=== PATIENT | male | born 1965 | race Two or more races ===

== ENCOUNTER 2020-07-22 18:22 | Emergency (ER) | payer SELFPAY ==
[~2020-07-22] VITALS: Ht 175.3 cm; Wt 82.1 kg
[2020-07-22] MEDS ORDERED: LORazepam 1 MG TABLET PO ONE (19:15)
--- NOTE | 2020-07-22 19:32 | RAD ---
STUDY: CT head without contrast INDICATION: Headache. COMPARISON: None. TECHNIQUE: Axial CT imaging through the head without the use of intravenous contrast. Sagittal and co remigio reformats were obtained. One or more of the following individualized dose reduction techniques were utilized for this examinat ion: 1. Automated exposure control 2. Adjustment of the mA and/or kV according to patient size 3. Use of iterative reconstruction technique. FINDINGS: No acute intracranial hemorrhage. Symmetric amorphous hyperattenuation at the globus pallidus compati ble with senescent/physiologic mineralization. Ybarra-white matter differentiation is maintained. No lo calized mass effect, midline shift or hydrocephalus. Unremarkable orbits and scalp. Intact calvarium. Normally aerated mastoid air cells, middle ears and visualized paranasal sinuses. IMPRESSION: No acute intracranial abnormality by CT. Electronically signed by: VERNELL LAUREANO MD (07/22/2020 7:30 PM) [facility]
--- NOTE | 2020-07-22 19:34 | PHYS DOC ---
Past History Past Medical History: Anxiety, Other Additional Past Medical Histor: INSOMNIA Past Surgical History: No Surgical History Alcohol Use: None Adult General Chief Complaint Chief Complaint: ANXIETY/PANIC ATTACK HPI HPI Patient is a 54-year-old male presents emergency department complaining of headache with numbness and tingling down both extremities. Patient denies recent injury, patient states that he is been dealing with these headaches for the past 10 years and has never had a CAT scan done, the patient worries that he might be having a stroke. Patient states that he has been feeling very nervous lately stating that he has been out of his clonazepam for the past 2 weeks. Patient states that he is supposed to take 50 mg of Zoloft for his anxiety disorder which he has been taking off and on however he felt like he might need it today so he took it this morning. Patient denies any visual changes, cough, shortness of breath, chest pain, chest palpitations, nausea, vomiting, diarrhea. Patient denies any allergic reaction symptoms, denies hives of his skin or itching of his skin. Patient states no one else living in his home is having the same symptoms as he. Patient denies any loss of motor dexterity, patient states that he can walk just fine. Patient states that he can drink any food without any problems. Review of Systems Review of Systems 14 body systems of review of systems have been reviewed. See HPI for pertinent positives and negative responses, otherwise all other systems are negative, nonpertinent or noncontributory. Current Medications Current Medications Current Medications Medications (Trade) Dose Ordered Sig/Radha Start Time Stop Time Status Last Admin Dose Admin Lorazepam (Ativan) 1 mg 1X ONCE 07/22/20 19:15 07/22/20 19:16 DC Allergies Allergies Allergies Coded Allergies Type Severity Reaction Last Updated Verified No Known Drug Allergies 07/22/20 No Physical Exam Physical Exam Constitutional: Well developed, well nourished, no acute distress, non-toxic appearance. HENT: Normocephalic, atraumatic, bilateral external ears normal, oropharynx moist, no oral exudates, nose normal. Eyes: PERRLA, EOMI, conjunctiva normal, no discharge. Neck: Normal range of motion, no tenderness, supple, no stridor. Cardiovascular:Heart rate regular rhythm, no murmur Lungs & Thorax: Bilateral breath sounds clear to auscultation Abdomen: Bowel sounds normal, soft, no tenderness, no masses, no pulsatile masses. Skin: Warm, dry, no erythema, no rash. Back: No tenderness, no CVA tenderness. Extremities: No tenderness, no cyanosis, no clubbing, ROM intact, no edema. Neurologic: Alert and oriented X 3, normal motor function, normal sensory function, no focal deficits noted. Psychologic: Affect normal, judgement normal, mood normal. Current Patient Data Vital Signs Vital Signs Date Time Temp Pulse Resp B/P (MAP) Pulse Ox O2 Delivery O2 Flow Rate FiO2 07/22/20 18:31 98.0 65 18 145/74 (97) 98 Room Air EKG EKG [] Radiology/Procedures Radiology/Procedures STATUS: REG ER ORD. PHYSICIAN: ELLE PEREZ APRN REASON: Headache PROCEDURE: CT HEAD WO CONTRAST STUDY: CT head without contrast INDICATION: Headache. COMPARISON: None. TECHNIQUE: Axial CT imaging through the head without the use of intravenous contrast. Sagittal and coronal reformats were obtained. One or more of the following individualized dose reduction techniques were utilized for this examination: 1. Automated exposure control 2. Adjustment of the mA and/or kV according to patient size 3. Use of iterative reconstruction technique. FINDINGS: No acute intracranial hemorrhage. Symmetric amorphous hyperattenuation at the globus pallidus compatible with senescent/physiologic mineralization. Ybarra-white matter differentiation is maintained. No localized mass effect, midline shift or hydrocephalus. Unremarkable orbits and scalp. Intact calvarium. Normally aerated mastoid air cells, middle ears and visualized paranasal sinuses. IMPRESSION: No acute intracranial abnormality by CT. Electronically signed by: VERNELL LAUREANO MD (07/22/2020 7:30 PM) [facility] DICTATED AND SIGNED BY: VERNELL LAUREANO MD DATE: 07/22/201925 CC: ELLE PEREZ APRN; ADORE LYLES MD ~MTH0 0 Impressions: Primary impression: Anxiety attack, panic attack. Heart Score Risk Factors: Risk Factors: DM, Current or recent (<one month) smoker, HTN, HLP, family history of CAD, obesity. Risk Scores: Risk Factors: DM, Current or recent (<one month) smoker, HTN, HLP, family history of CAD, obesity. Course & Med Decision Making Course & Med Decision Making Pertinent Labs and Imaging studies reviewed. (See chart for details) 54-year-old male presents emergency department with headache with extremity tingling, physical exam was concerning for acute anxiety/panic attack, however related to patient's stated physical complaints a CAT scan of his head was performed, it was read negative by house radiologist interpretation, reviewed CAT scan findings with patient who stated he feels much better and his headache has been relieved, patient is no longer exhibiting any signs or symptoms of panic or anxiety attack at this time, discussed with patient need to follow-up with primary care physician for further treatment of his anxieties and panic attack. Patient gave verbal understanding of discharge home instructions, return to ER concerns, follow-up with primary care physician. Dragon Disclaimer Dragon Disclaimer This electronic medical record was generated, in whole or in part, using a voice recognition dictation system. Departure Departure: Impression: Primary Impression: Panic attack Additional Impression: Anxiety about health Disposition: 01 DC HOME SELF CARE/HOMELESS Condition: IMPROVED Referrals: ADORE LYLES MD (PCP) Patient Instructions: Anxiety and Panic Attacks Additional Instructions: Your evaluated in the emergency department, we performed a CT of your head which was negative, we discussed at length your anxiety and panic attacks, please follow-up with Dr. Omer this week regarding your panic and anxiety attacks for further treatment. Return to the emergency department for worsening symptoms or other concerns. EMERGENCY DEPARTMENT GENERAL DISCHARGE INSTRUCTIONS Thank you for coming to [facility] (ED) today and trusting us with you care. We trust that you had a positivie experience in our Emergency Department. If you wish to speak to the department management, you may call the director at [phone]. YOUR FOLLOW UP INSTRUCTIONS ARE FOLLOWS: 1. Do you have a private Doctor? If you do not have a private doctor, please ask for a resource list of physicians or clinics that may be able to assist you with follow up care. 2. The Emergency Physician has interpreted your x-rays. The X-Ray specialist will also review them. If there is a change in the findings, you will be notified in 48 hours when at all possible. 3. A lab test or culture has been done, your results will be reviewed and you will be notified if you need a change in treatment. ADDITIONAL INSTRUCTIONS AND INFORMATION: 1. Your care today has been supervised by a physician who is specially trained in emergency care. Many problems require more than one evaluation for a complete diagnosis and treatment. We recommend that you schedule your follow up appointment as recommended to ensure complete treatment of you illness or injury. If you are unable to obtain follow up care and continue to have a problem, or if your condition worsens, we recommend that you return to the ED. 2. We are not able to safely determine your condition over the phone nor are we able to give sound medical advice over the phone. For these safety reasons, if you call for medical advice we will ask you to come to the ED for further evaluation. 3. If you have any questions regarding these discharge instructions please call the ED at [phone]. SAFETY INFORMATION: In the interest of safety, wellness, and injury prevention; we encourage you to wear your sealbelt, if you smoke; quite smoking, and we encourage family to use a protective helmet for bicycling and other sporting events that present an increased risk for head injury. IF YOUR SYMPTOMS WORSEN OR NEW SYMPTOMS DEVELOP, OR YOU HAVE CONCERNS ABOUT YOUR CONDITION; OR IF YOUR CONDITION WORSENS WHILE YOU ARE WAITING FOR YOUR FOLLOW UP APPOINTMENT; EITHER CONTACT YOUR PRIMARY CARE DOCTOR, THE PHYSICIAN WHOSE NAME AND NUMBER YOU WERE GIVEN, OR RETURN TO THE ED IMMEDIATELY. Problem Qualifiers ELLE PEREZ SENIOR DENTIST Jul 22, 2020 19:34
[2020-07-22 20:13] VITALS: BP 142/84
== END 2020-07-22 20:15 | disposition home or self-care (01) ==
LOC: ER 18:22
DX: F41.0 Panic disorder [episodic paroxysmal anxiety] (principal)
CPT/HCPCS: 70450; 99285-25